=== PATIENT | female | born 1945 | race Caucasian/White ===

== ENCOUNTER 2021-04-26 13:51 | Inpatient (IN) | payer MEDICARE, OTHER ==
[~2021-04-26] VITALS: Ht 162.6 cm; Wt 56.7 kg
[2021-05-01 19:40] VITALS: BP 100/63
[2021-05-01] MEDS ORDERED: ACETAMINOPHEN 325 MG TABLET PO PRN (20:00)
[2021-05-01] MEDS ORDERED: CALCIUM CARBONATE 500 MG CHEWABLE TABLET PO PRN (20:15)
[2021-05-01] MEDS ORDERED: SIMETHICONE 80 MG CHEWABLE TABLET CHEW PRN (20:15)
[2021-05-01] MEDS: SENNA 187 MG TABLET PO SCH (21:00)
[2021-05-01] MEDS: POLYETHYLENE GLYCOL 3350 17 GM PACKET PO SCH (21:00)
[2021-05-01] MEDS ORDERED: CARBIDOPA/LEVODOPA 25-100 MG TABLET PO SCH (21:00)
[2021-05-01] MEDS: DOCUSATE SODIUM 100 MG CAPSULE PO SCH (21:00)
[2021-05-01] MEDS: GABAPENTIN 300 MG CAPSULE PO SCH (21:01)
[2021-05-01] MEDS: MORPHINE SULFATE 15 MG IR TABLET PO PRN (21:02)
[2021-05-01 21:52] VITALS: BP 107/56
[2021-05-01] MEDS: MELATONIN 5 MG TABLET PO PRN (22:15)
[2021-05-01] MEDS: ENOXAPARIN SODIUM 60 MG/0.6 ML PF SYRINGE SQ SCH (22:16)
[2021-05-01 22:17] VITALS: BP 111/57
[2021-05-01] MEDS: AMOX TR/POT CLAV 875 MG/125 MG TABLET PO SCH (22:17)
[2021-05-01] MEDS: PROPRANOLOL HCL 20 MG TABLET PO SCH (22:17)
[2021-05-01] MEDS: ETHYL ALCOHOL 62% ANTISEPTIC NASAL INHALANT 0.6 ML AMPUL NASAL SCH (22:20)
[2021-05-01] MEDS: BACLOFEN 10 MG TABLET PO SCH (22:22)
[2021-05-01] MEDS: ACETAMINOPHEN 325 MG TABLET PO SCH (22:23)
[2021-05-01] MEDS: CarBAMazepine 200 MG TABLET PO SCH (22:31)
[2021-05-02] MEDS: ESOMEPRAZOLE MAG TRIHYDRATE 20 MG CAPSULE PO SCH (05:39)
[2021-05-02] MEDS: ACETAMINOPHEN 325 MG TABLET PO SCH ×3 (05:40→21:05)
[2021-05-02] MEDS: BACLOFEN 10 MG TABLET PO SCH ×3 (05:40→21:04)
[2021-05-02 05:54] VITALS: BP 91/55
[2021-05-02 07:32] LABS: BASOPHILS % (AUTO) 0.8 % (0.0-2.0); EOSINOPHILS % (AUTO) 3.4 % (1.0-6.0); HEMATOCRIT 28.7 % (36-46); HEMOGLOBIN 9.6 g/dL (12.0-16.0); LYMPHOCYTES # (AUTO) 0.9 K/uL (1.0-4.8); LYMPHOCYTES % (AUTO) 14.5 % (22.0-44.0); MEAN CORPUSCULAR HEMOGLOBIN 32.4 pg (26.0-34.0); MEAN CORPUSCULAR HGB CONC 33.5 G/dL (31.0-37.0); MEAN CORPUSCULAR VOLUME 97 fL (80-100); MONOCYTES # (AUTO) 0.8 K/uL (0.1-1.0); MONOCYTES % (AUTO) 12.5 % (2.0-9.0); NEUTROPHILS # (AUTO) 4.3 K/uL (1.8-7.7); NEUTROPHILS % (AUTO) 68.8 % (40.0-70.0); PLATELET COUNT (AUTO) 421 K/uL (150-450); RED BLOOD CELL COUNT(AUTO) 2.97 MIL/uL (4.00-5.20); RED CELL DISTRIBUTION WIDTH 18.5 % (11.5-14.5)
[2021-05-02] MEDS: ETHYL ALCOHOL 62% ANTISEPTIC NASAL INHALANT 0.6 ML AMPUL NASAL SCH ×2 (07:52→20:16)
[2021-05-02] MEDS: AMOX TR/POT CLAV 875 MG/125 MG TABLET PO SCH ×2 (07:53→20:16)
[2021-05-02] MEDS: DOCUSATE SODIUM 100 MG CAPSULE PO SCH ×2 (07:54→20:17)
[2021-05-02] MEDS: TAMSULOSIN HCL 0.4 MG CAPSULE PO SCH (07:54)
[2021-05-02] MEDS: POLYETHYLENE GLYCOL 3350 17 GM PACKET PO SCH ×2 (07:55→20:17)
[2021-05-02 07:56] LABS: ALANINE AMINOTRANSFERASE 6 U/L (12-78); ALBUMIN 2.5 g/dL (3.4-5.0); ALKALINE PHOSPHATASE 132 U/L (46-116); ANION GAP 2 mmol/L (8-16); ASPARTATE AMINOTRANSFERASE 26 U/L (15-37); BILIRUBIN,TOTAL 0.3 mg/dL (0.1-1.0); CALCIUM, TOTAL 8.4 mg/dL (8.8-10.5); CARBON DIOXIDE 34 mmol/L (22-29); CHLORIDE 103 mmol/L (98-107); CREATININE 0.62 mg/dL (0.60-1.30); GLUCOSE,RANDOM 92 mg/dL (70-110); POTASSIUM 4.1 mmol/L (3.5-5.1); SODIUM SERUM 139 mmol/L (136-145); TOTAL PROTEIN, SERUM 5.8 g/dL (6.4-8.2); UREA NITROGEN, BLOOD 7 mg/dL (7-18)
[2021-05-02] MEDS: CarBAMazepine 200 MG TABLET PO SCH ×2 (07:57→20:17)
[2021-05-02] MEDS: MULTIVITAMINS WITH MINERALS, THERAPEUTIC TABLET PO SCH (07:57)
[2021-05-02] MEDS: ENOXAPARIN SODIUM 60 MG/0.6 ML PF SYRINGE SQ SCH ×2 (07:58→20:16)
[2021-05-02 07:59] LABS: GLOMERULAR FILTR. RATE CALC > 60 mL/min (>60)
[2021-05-02] MEDS: LIDOCAINE 5% TRANSDERMAL PATCH TD SCH (07:59)
[2021-05-02] MEDS: MORPHINE SULFATE 15 MG IR TABLET PO PRN ×3 (08:01→20:15)
[2021-05-02] MEDS ORDERED: CARBIDOPA/LEVODOPA 25-100 MG TABLET PO SCH (09:00)
[2021-05-02] MEDS: PROPRANOLOL HCL 20 MG TABLET PO SCH ×2 (09:00→20:16)
[2021-05-02] MEDS: FUROSEMIDE 20 MG TABLET PO SCH (09:00)
[2021-05-02 09:02] VITALS: BP 98/48
[2021-05-02] MEDS: CARBIDOPA/LEVODOPA 25-100 MG TABLET PO SCH ×2 (15:17→20:15)
[2021-05-02 16:02] VITALS: BP 97/61
[2021-05-02 20:12] VITALS: BP 116/75
[2021-05-02] MEDS: GABAPENTIN 300 MG CAPSULE PO SCH (20:16)
[2021-05-02] MEDS: SENNA 187 MG TABLET PO SCH (20:17)
[2021-05-02] MEDS: -LIDODERM PATCH NOTE- MISC SCH (20:18)
[2021-05-02] MEDS: MELATONIN 5 MG TABLET PO PRN (22:10)
[2021-05-03] MEDS: ESOMEPRAZOLE MAG TRIHYDRATE 20 MG CAPSULE PO SCH (05:34)
[2021-05-03] MEDS: BACLOFEN 10 MG TABLET PO SCH ×3 (05:34→20:46)
[2021-05-03] MEDS: ACETAMINOPHEN 325 MG TABLET PO SCH ×3 (05:35→20:48)
[2021-05-03 06:00] VITALS: BP 128/56
[2021-05-03 07:38] VITALS: BP 104/56
[2021-05-03] MEDS: PROPRANOLOL HCL 20 MG TABLET PO SCH ×2 (08:23→21:00)
[2021-05-03] MEDS: DOCUSATE SODIUM 100 MG CAPSULE PO SCH ×2 (08:23→20:44)
[2021-05-03] MEDS: CarBAMazepine 200 MG TABLET PO SCH ×2 (08:24→20:46)
[2021-05-03] MEDS: MULTIVITAMINS WITH MINERALS, THERAPEUTIC TABLET PO SCH (08:24)
[2021-05-03] MEDS: TAMSULOSIN HCL 0.4 MG CAPSULE PO SCH (08:24)
[2021-05-03] MEDS: MORPHINE SULFATE 15 MG IR TABLET PO PRN ×4 (08:24→23:32)
[2021-05-03] MEDS: PROMETHAZINE HCL 25 MG TABLET PO PRN (08:24)
[2021-05-03] MEDS: ETHYL ALCOHOL 62% ANTISEPTIC NASAL INHALANT 0.6 ML AMPUL NASAL SCH ×2 (08:25→20:43)
[2021-05-03] MEDS: FUROSEMIDE 20 MG TABLET PO SCH (08:25)
[2021-05-03] MEDS: CARBIDOPA/LEVODOPA 25-100 MG TABLET PO SCH ×3 (08:25→20:45)
[2021-05-03] MEDS: AMOX TR/POT CLAV 875 MG/125 MG TABLET PO SCH ×2 (08:25→20:45)
[2021-05-03] MEDS: POLYETHYLENE GLYCOL 3350 17 GM PACKET PO SCH ×2 (08:26→20:47)
[2021-05-03] MEDS: LIDOCAINE 5% TRANSDERMAL PATCH TD SCH (08:26)
[2021-05-03] MEDS: ENOXAPARIN SODIUM 60 MG/0.6 ML PF SYRINGE SQ SCH ×2 (08:29→20:43)
[2021-05-03 15:05] VITALS: BP 108/59
[2021-05-03] MEDS: SENNA 187 MG TABLET PO SCH (20:46)
[2021-05-03] MEDS: -LIDODERM PATCH NOTE- MISC SCH (20:47)
[2021-05-03] MEDS: GABAPENTIN 300 MG CAPSULE PO SCH (20:49)
[2021-05-03 20:58] VITALS: BP 96/65
[2021-05-03] MEDS: MELATONIN 5 MG TABLET PO PRN (21:33)
[2021-05-03 21:35] VITALS: BP 105/71
[2021-05-03 23:32] VITALS: BP 120/65
[2021-05-04] MEDS: BACLOFEN 10 MG TABLET PO SCH ×3 (06:09→21:47)
[2021-05-04] MEDS: ESOMEPRAZOLE MAG TRIHYDRATE 20 MG CAPSULE PO SCH (06:10)
[2021-05-04] MEDS: ACETAMINOPHEN 325 MG TABLET PO SCH ×3 (06:10→21:47)
[2021-05-04 07:40] VITALS: BP 106/67
[2021-05-04] MEDS: MORPHINE SULFATE 15 MG IR TABLET PO PRN ×4 (07:40→21:49)
[2021-05-04] MEDS: ETHYL ALCOHOL 62% ANTISEPTIC NASAL INHALANT 0.6 ML AMPUL NASAL SCH ×2 (07:57→20:11)
[2021-05-04] MEDS: ENOXAPARIN SODIUM 60 MG/0.6 ML PF SYRINGE SQ SCH ×2 (07:58→20:18)
[2021-05-04] MEDS: MULTIVITAMINS WITH MINERALS, THERAPEUTIC TABLET PO SCH (07:58)
[2021-05-04] MEDS: TAMSULOSIN HCL 0.4 MG CAPSULE PO SCH (07:58)
[2021-05-04] MEDS: CarBAMazepine 200 MG TABLET PO SCH ×2 (07:59→20:22)
[2021-05-04] MEDS: AMOX TR/POT CLAV 875 MG/125 MG TABLET PO SCH (07:59)
[2021-05-04] MEDS: PROPRANOLOL HCL 20 MG TABLET PO SCH ×2 (07:59→20:27)
[2021-05-04] MEDS: FUROSEMIDE 20 MG TABLET PO SCH (08:00)
[2021-05-04] MEDS: CARBIDOPA/LEVODOPA 25-100 MG TABLET PO SCH ×3 (08:00→20:24)
[2021-05-04] MEDS: LIDOCAINE 5% TRANSDERMAL PATCH TD SCH (08:01)
[2021-05-04] MEDS: DOCUSATE SODIUM 100 MG CAPSULE PO SCH ×2 (08:03→20:15)
[2021-05-04] MEDS: POLYETHYLENE GLYCOL 3350 17 GM PACKET PO SCH ×2 (08:03→20:12)
[2021-05-04 16:01] VITALS: BP 101/64
[2021-05-04] MEDS: -LIDODERM PATCH NOTE- MISC SCH (20:11)
[2021-05-04] MEDS: SENNA 187 MG TABLET PO SCH (20:15)
[2021-05-04] MEDS: GABAPENTIN 300 MG CAPSULE PO SCH (20:16)
[2021-05-04] MEDS: MELATONIN 5 MG TABLET PO PRN (21:49)
[2021-05-05 05:16] VITALS: BP 122/69
[2021-05-05] MEDS: MORPHINE SULFATE 15 MG IR TABLET PO PRN ×5 (05:16→21:56)
[2021-05-05] MEDS: ACETAMINOPHEN 325 MG TABLET PO SCH ×3 (06:48→22:00)
[2021-05-05] MEDS: BACLOFEN 10 MG TABLET PO SCH ×3 (06:48→21:02)
[2021-05-05] MEDS: ESOMEPRAZOLE MAG TRIHYDRATE 20 MG CAPSULE PO SCH (06:49)
[2021-05-05 08:00] VITALS: BP 111/62
[2021-05-05] MEDS: PROPRANOLOL HCL 20 MG TABLET PO SCH ×2 (09:00→20:20)
[2021-05-05] MEDS: POLYETHYLENE GLYCOL 3350 17 GM PACKET PO SCH ×2 (09:00→20:25)
[2021-05-05] MEDS: ETHYL ALCOHOL 62% ANTISEPTIC NASAL INHALANT 0.6 ML AMPUL NASAL SCH ×2 (09:05→20:18)
[2021-05-05] MEDS: DOCUSATE SODIUM 100 MG CAPSULE PO SCH ×2 (09:06→20:19)
[2021-05-05] MEDS: TAMSULOSIN HCL 0.4 MG CAPSULE PO SCH (09:08)
[2021-05-05] MEDS: FUROSEMIDE 20 MG TABLET PO SCH (09:10)
[2021-05-05] MEDS: CARBIDOPA/LEVODOPA 25-100 MG TABLET PO SCH ×3 (09:11→20:20)
[2021-05-05] MEDS: MULTIVITAMINS WITH MINERALS, THERAPEUTIC TABLET PO SCH (09:11)
[2021-05-05] MEDS: CarBAMazepine 200 MG TABLET PO SCH ×2 (09:11→20:20)
[2021-05-05] MEDS: LIDOCAINE 5% TRANSDERMAL PATCH TD SCH (09:12)
[2021-05-05] MEDS: ENOXAPARIN SODIUM 60 MG/0.6 ML PF SYRINGE SQ SCH ×2 (09:12→20:18)
[2021-05-05 16:01] VITALS: BP 101/56
[2021-05-05 20:15] VITALS: BP 126/59
[2021-05-05] MEDS: GABAPENTIN 300 MG CAPSULE PO SCH (20:19)
[2021-05-05] MEDS: -LIDODERM PATCH NOTE- MISC SCH (20:21)
[2021-05-05] MEDS: SENNA 187 MG TABLET PO SCH (20:25)
[2021-05-05] MEDS: MELATONIN 5 MG TABLET PO PRN (21:57)
[2021-05-06 00:30] VITALS: BP 129/64
[2021-05-06] MEDS: BACLOFEN 10 MG TABLET PO SCH ×3 (06:29→21:22)
[2021-05-06] MEDS: ACETAMINOPHEN 325 MG TABLET PO SCH ×3 (06:30→21:22)
[2021-05-06] MEDS: ESOMEPRAZOLE MAG TRIHYDRATE 20 MG CAPSULE PO SCH (06:30)
[2021-05-06] MEDS: ENOXAPARIN SODIUM 60 MG/0.6 ML PF SYRINGE SQ SCH ×2 (07:41→20:44)
[2021-05-06] MEDS: LIDOCAINE 5% TRANSDERMAL PATCH TD SCH (07:43)
[2021-05-06] MEDS: DOCUSATE SODIUM 100 MG CAPSULE PO SCH (07:43)
[2021-05-06] MEDS: TAMSULOSIN HCL 0.4 MG CAPSULE PO SCH (07:45)
[2021-05-06] MEDS: FUROSEMIDE 20 MG TABLET PO SCH (07:45)
[2021-05-06] MEDS: PROPRANOLOL HCL 20 MG TABLET PO SCH ×2 (07:45→20:44)
[2021-05-06] MEDS: CARBIDOPA/LEVODOPA 25-100 MG TABLET PO SCH ×3 (07:45→21:39)
[2021-05-06] MEDS: MULTIVITAMINS WITH MINERALS, THERAPEUTIC TABLET PO SCH (07:45)
[2021-05-06] MEDS: CarBAMazepine 200 MG TABLET PO SCH ×2 (07:46→20:43)
[2021-05-06] MEDS: ETHYL ALCOHOL 62% ANTISEPTIC NASAL INHALANT 0.6 ML AMPUL NASAL SCH ×2 (07:47→20:42)
[2021-05-06 08:27] VITALS: BP 123/74
[2021-05-06] MEDS: MORPHINE SULFATE 15 MG IR TABLET PO PRN ×4 (08:27→22:23)
[2021-05-06] MEDS: PROMETHAZINE HCL 25 MG TABLET PO PRN (09:20)
[2021-05-06] MEDS: POLYETHYLENE GLYCOL 3350 17 GM PACKET PO SCH (09:23)
[2021-05-06] MEDS: GABAPENTIN 100 MG CAPSULE PO SCH ×2 (15:44→20:44)
[2021-05-06 15:53] VITALS: BP 100/66
[2021-05-06] MEDS: LUBIPROSTONE 24 MCG CAPSULE PO SCH (17:23)
[2021-05-06 20:40] VITALS: BP 110/67
[2021-05-06] MEDS: SENNA 187 MG TABLET PO SCH (20:44)
[2021-05-06] MEDS: -LIDODERM PATCH NOTE- MISC SCH (21:23)
[2021-05-07] VITALS: BP 103/58
[2021-05-07] MEDS: MORPHINE SULFATE 15 MG IR TABLET PO PRN ×5 (02:15→21:58)
[2021-05-07] MEDS: ESOMEPRAZOLE MAG TRIHYDRATE 20 MG CAPSULE PO SCH (06:31)
[2021-05-07] MEDS: BACLOFEN 10 MG TABLET PO SCH ×3 (06:31→21:09)
[2021-05-07] MEDS: ACETAMINOPHEN 325 MG TABLET PO SCH ×3 (06:32→21:08)
[2021-05-07] MEDS: LUBIPROSTONE 24 MCG CAPSULE PO SCH ×2 (07:30→17:41)
[2021-05-07] MEDS: DOCUSATE SODIUM 250 MG CAPSULE PO SCH (08:21)
[2021-05-07 08:22] VITALS: BP 111/64
[2021-05-07] MEDS: MULTIVITAMINS WITH MINERALS, THERAPEUTIC TABLET PO SCH (08:22)
[2021-05-07] MEDS: TAMSULOSIN HCL 0.4 MG CAPSULE PO SCH (08:22)
[2021-05-07] MEDS: LIDOCAINE 5% TRANSDERMAL PATCH TD SCH (08:23)
[2021-05-07] MEDS: GABAPENTIN 100 MG CAPSULE PO SCH ×3 (08:23→21:09)
[2021-05-07] MEDS: ENOXAPARIN SODIUM 60 MG/0.6 ML PF SYRINGE SQ SCH ×2 (08:24→21:08)
[2021-05-07] MEDS: CARBIDOPA/LEVODOPA 25-100 MG TABLET PO SCH ×3 (08:24→21:09)
[2021-05-07] MEDS: CarBAMazepine 200 MG TABLET PO SCH ×2 (08:25→21:10)
[2021-05-07] MEDS: PROPRANOLOL HCL 20 MG TABLET PO SCH ×2 (08:26→21:10)
[2021-05-07] MEDS: FUROSEMIDE 20 MG TABLET PO SCH ×2 (08:37→16:26)
[2021-05-07] MEDS: ETHYL ALCOHOL 62% ANTISEPTIC NASAL INHALANT 0.6 ML AMPUL NASAL SCH ×2 (09:01→21:08)
[2021-05-07 15:53] VITALS: BP 118/62
[2021-05-07] MEDS: -LIDODERM PATCH NOTE- MISC SCH (21:07)
[2021-05-07] MEDS: SENNA 187 MG TABLET PO SCH (21:09)
[2021-05-07] MEDS: MELATONIN 5 MG TABLET PO PRN (21:09)
[2021-05-07 21:10] VITALS: BP 109/64
[2021-05-08 01:48] VITALS: BP 103/62
[2021-05-08] MEDS: MORPHINE SULFATE 15 MG IR TABLET PO PRN ×5 (01:48→23:49)
[2021-05-08] MEDS: ESOMEPRAZOLE MAG TRIHYDRATE 20 MG CAPSULE PO SCH (06:08)
[2021-05-08] MEDS: ACETAMINOPHEN 325 MG TABLET PO SCH ×3 (06:08→21:18)
[2021-05-08] MEDS: LACTULOSE 20 GM/30 ML SOLUTION UDCUP PO PRN ×2 (06:09→12:40)
[2021-05-08] MEDS: BACLOFEN 10 MG TABLET PO SCH ×3 (06:09→21:18)
[2021-05-08 08:16] VITALS: BP 106/62
[2021-05-08] MEDS: DOCUSATE SODIUM 250 MG CAPSULE PO SCH (08:20)
[2021-05-08] MEDS: ETHYL ALCOHOL 62% ANTISEPTIC NASAL INHALANT 0.6 ML AMPUL NASAL SCH ×2 (08:20→20:09)
[2021-05-08] MEDS: LUBIPROSTONE 24 MCG CAPSULE PO SCH ×2 (08:20→18:23)
[2021-05-08] MEDS: MULTIVITAMINS WITH MINERALS, THERAPEUTIC TABLET PO SCH (08:21)
[2021-05-08] MEDS: GABAPENTIN 100 MG CAPSULE PO SCH ×3 (08:21→20:09)
[2021-05-08] MEDS: TAMSULOSIN HCL 0.4 MG CAPSULE PO SCH (08:21)
[2021-05-08] MEDS: CARBIDOPA/LEVODOPA 25-100 MG TABLET PO SCH ×3 (08:21→20:10)
[2021-05-08] MEDS: ENOXAPARIN SODIUM 60 MG/0.6 ML PF SYRINGE SQ SCH (08:22)
[2021-05-08] MEDS: LIDOCAINE 5% TRANSDERMAL PATCH TD SCH (08:23)
[2021-05-08] MEDS: FUROSEMIDE 20 MG TABLET PO SCH (08:24)
[2021-05-08] MEDS: CarBAMazepine 200 MG TABLET PO SCH ×2 (08:24→20:09)
[2021-05-08] MEDS: PROPRANOLOL HCL 20 MG TABLET PO SCH ×2 (08:24→21:17)
[2021-05-08] MEDS: PROMETHAZINE HCL 25 MG TABLET PO PRN (12:52)
[2021-05-08] MEDS ORDERED: BISACODYL 10 MG RECTAL RECTAL SUPPOSITORY PR PRN (13:45)
[2021-05-08 16:01] VITALS: BP 101/56
[2021-05-08] MEDS: APIXABAN 5 MG TABLET PO SCH (20:10)
[2021-05-08] MEDS: SENNA 187 MG TABLET PO SCH (20:10)
[2021-05-08] MEDS: -LIDODERM PATCH NOTE- MISC SCH (20:15)
[2021-05-08 21:10] VITALS: BP 119/76
[2021-05-08] MEDS: MELATONIN 5 MG TABLET PO PRN (21:20)
[2021-05-08 23:45] VITALS: BP 85/53
[2021-05-08 23:49] VITALS: BP 91/55
[2021-05-09] MEDS: MORPHINE SULFATE 15 MG IR TABLET PO PRN ×4 (02:53→14:52)
[2021-05-09] MEDS ORDERED: APIX5TAB PO (03:47)
[2021-05-09] MEDS ORDERED: SIME80TA14 PO (03:47)
[2021-05-09] MEDS ORDERED: GABA-1216 PO (03:47)
[2021-05-09] MEDS ORDERED: TAMS-13 PO (03:47)
[2021-05-09] MEDS ORDERED: CALC500T37 PO (03:47)
[2021-05-09] MEDS ORDERED: FURO20 PO (03:47)
[2021-05-09] MEDS ORDERED: SENN8.6T90 PO (03:47)
[2021-05-09] MEDS ORDERED: MELA5TAB40 PO (03:47)
[2021-05-09] MEDS ORDERED: DOCU-350 PO (03:47)
[2021-05-09] MEDS ORDERED: ACET325S20 PO (03:47)
[2021-05-09] MEDS ORDERED: ACET-2247 PO (03:47)
[2021-05-09] MEDS ORDERED: PROM-163 PO (03:47)
[2021-05-09] MEDS ORDERED: LACT30L PO (03:47)
[2021-05-09] MEDS ORDERED: LUBI24CA2 PO (03:47)
[2021-05-09] MEDS ORDERED: BISA-151 PO (03:47)
[2021-05-09] MEDS ORDERED: ESOM20CA31 PO (03:47)
[2021-05-09] MEDS ORDERED: MORPHINE PO (03:47)
[2021-05-09] MEDS ORDERED: LIDO700A15 TP (03:47)
[2021-05-09] MEDS ORDERED: PROP20TA18 PO (03:47)
[2021-05-09] MEDS ORDERED: MULT-1239 PO (03:47)
[2021-05-09] MEDS ORDERED: CARB-98 PO (03:47)
[2021-05-09] MEDS ORDERED: BACL10TA PO (03:47)
[2021-05-09] MEDS ORDERED: CARB200C7 PO ×2 (03:47)
[2021-05-09] MEDS ORDERED: CARB100 PO ×2 (04:30)
[2021-05-09] MEDS: ESOMEPRAZOLE MAG TRIHYDRATE 20 MG CAPSULE PO SCH (05:57)
[2021-05-09] MEDS: BACLOFEN 10 MG TABLET PO SCH ×2 (05:58→14:52)
[2021-05-09] MEDS: ACETAMINOPHEN 325 MG TABLET PO SCH ×2 (05:58→14:00)
[2021-05-09 06:12] VITALS: BP 101/57
[2021-05-09 07:55] VITALS: BP 86/53
[2021-05-09] MEDS: ETHYL ALCOHOL 62% ANTISEPTIC NASAL INHALANT 0.6 ML AMPUL NASAL SCH (07:58)
[2021-05-09] MEDS: LIDOCAINE 5% TRANSDERMAL PATCH TD SCH (07:59)
[2021-05-09 08:00] VITALS: BP 94/61
[2021-05-09] MEDS: LUBIPROSTONE 24 MCG CAPSULE PO SCH (08:00)
[2021-05-09] MEDS: DOCUSATE SODIUM 250 MG CAPSULE PO SCH (08:00)
[2021-05-09] MEDS: APIXABAN 5 MG TABLET PO SCH (08:02)
[2021-05-09 08:03] VITALS: BP 114/72
[2021-05-09] MEDS: GABAPENTIN 100 MG CAPSULE PO SCH (08:03)
[2021-05-09] MEDS: PROPRANOLOL HCL 20 MG TABLET PO SCH (08:03)
[2021-05-09] MEDS: TAMSULOSIN HCL 0.4 MG CAPSULE PO SCH (08:03)
[2021-05-09] MEDS: MULTIVITAMINS WITH MINERALS, THERAPEUTIC TABLET PO SCH (08:04)
[2021-05-09] MEDS: CARBIDOPA/LEVODOPA 25-100 MG TABLET PO SCH (08:05)
[2021-05-09] MEDS: FUROSEMIDE 20 MG TABLET PO SCH (08:07)
[2021-05-09] MEDS: CarBAMazepine 200 MG TABLET PO SCH (08:14)
[2021-05-09 14:52] VITALS: BP 120/66
[2021-05-09] MEDS: PROMETHAZINE HCL 25 MG TABLET PO PRN (14:55)
[2021-05-16] MEDS ORDERED: APIXABAN 5 MG TABLET PO SCH (09:00)
== END 2021-05-09 16:10 | DRG 93 ==
LOC: 2WR 05-01 19:32
PROVIDERS: ADMIT Physical Medicine & Rehabilitation; ATTEND Physical Medicine & Rehabilitation
DX: G95.89 Other specified diseases of spinal cord (principal); M48.061 Spinal stenosis, lumbar region without neurogenic claudication; G20 Parkinson's disease; G40.909 Epilepsy, unspecified, not intractable, without status epilepticus; G47.00 Insomnia, unspecified; I10 Essential (primary) hypertension; D64.9 Anemia, unspecified; G82.20 Paraplegia, unspecified; K21.9 Gastro-esophageal reflux disease without esophagitis; K59.03 Drug induced constipation; T40.2X5A Adverse effect of other opioids, initial encounter; Z79.01 Long term (current) use of anticoagulants; Z86.711 Personal history of pulmonary embolism; Z87.820 Personal history of traumatic brain injury; Z90.49 Acquired absence of other specified parts of digestive tract; Z90.710 Acquired absence of both cervix and uterus; Z96.82 Presence of neurostimulator; Z98.2 Presence of cerebrospinal fluid drainage device
CPT/HCPCS: 80053; 85025; 87081; 97110; 97116; 97163; 97166; 97530; 97535; 99366; J1650; Q9967

== ENCOUNTER 2023-02-04 10:40 | Emergency (ER) | payer MEDICARE, OTHER ==
[~2023-02-04] VITALS: Ht 165.1 cm; Wt 49.1 kg
[~2023-02-04 10:40] MED LIST: ACET-2247 PO; ACET325S20 PO; APIX5TAB PO; BACL10TA PO; BISA-151 PO; CALC500T37 PO; CARB100T12 PO; CARB1TAB36 PO; DOCU-352 PO; ESOM20CA31 PO; FURO20 PO; GABA-1216 PO; LACT10SO10 PO; LIDO700A15 TP; LUBI24CA2 PO; MELA5TAB40 PO; MORPHINE PO; MULT-1239 PO; PROM-223 PO; PROP20TA18 PO; SENN8.6T90 PO; SIME80TA82 PO; TAMS-13 PO
[2023-02-04 11:05] VITALS: TEMP 97.9
[2023-02-04] MEDS ORDERED: LIDOCAINE 5% TRANSDERMAL PATCH TD ONE (12:15)
[2023-02-04] MEDS ORDERED: MORPHINE SULFATE 4 MG/ML SYRINGE IVP ONE ×3 (12:15→15:15)
[2023-02-04] MEDS ORDERED: CYCLOBENZAPRINE HCL 10 MG TABLET PO ONE (12:15)
[2023-02-04 15:54] VITALS: BP 128/79; PULSE 61; RESP 16
== END 2023-02-04 15:55 | disposition home or self-care (01) ==
LOC: EMS 10:40
DX: M54.6 Pain in thoracic spine (principal); I10 Essential (primary) hypertension; G89.29 Other chronic pain; Z98.890 Other specified postprocedural states; Z88.2 Allergy status to sulfonamides; Z88.5 Allergy status to narcotic agent; Z88.8 Allergy status to other drugs, medicaments and biological substances
CPT/HCPCS: 99284; 96374; 96376; J2270